=== PATIENT | female | born 1955 ===

== ENCOUNTER 2024-04-04 11:15 | Emergency (ER) | payer OTHER, SELFPAY ==
[2024-04-04 11:17] VITALS: BP 219/115
[2024-04-04 11:41] VITALS: BP 193/108
--- NOTE | 2024-04-04 12:12 | ED.GENMED ---
History of Present Illness
General
Chief Complaint: Fall
Source: patient
Exam Limitations: none
Time Seen by Provider: 04/04/24 12:03
Nursing documentation reviewed up to this point in time: agreed with
History of Present Illness
History of Present Illness:
69-year-old female presenting to the emergency department today with concerns of right hand discomfort ongoing over the past week. Initially had a fall landed on her hand had an x-ray in urgent care told that there was no fracture and that it would
improve over the next few days. Pain is ongoing come back to the ER. Denies numbness weakness or additional concerns
Review of Systems
Review of Systems
Allergies reviewed?: Yes
All Other Systems: ROS reviewed and negative except as documented in HPI and ROS
Phy Exam
Physical Exam
Physical Exam:
GENERAL: Alert , in no apparent distress
EYE: pupils equal and reactive
NECK: Supple, no significant adenopathy.
ENT: o/p clr, mmm.
CARDIAC: Regular rate and rhythm .
LUNGS: Clear breath sounds bilaterally, no acute respiratory distress, no wheezes/rales/rhonchi
ABDOMEN: Soft, without focal tenderness, no r/g, no cvat
NEUROLOGICAL: Alert and oriented, no focal neuro deficits
SKIN: Warm and dry, skin intact.
MUSCULOSKELETAL: Mild pain mainly to the palm of the hand otherwise no significant redness swelling warmth good range of motion of the wrist and fingers no edema, well perfused.
PSYCH: Normal and appropriate interaction.
Course
Orders/Labs/Results
Orders:
Orders
04/04/24 11:20
CR Hand - Right Min 3 Views Urgent
Comment:
Reason For Exam: pain 1 week after fall
Vital Signs
Initial and Last Documented VS:
Initial Vital Signs
Temp Pulse Resp BP Pulse Ox
97.6 F 72 16 219/115 98
04/04/24 11:17 04/04/24 11:17 04/04/24 11:17 04/04/24 11:17 04/04/24 11:17
Last Documented Vital Signs
Temp Pulse Resp BP Pulse Ox
97.6 F 67 18 193/108 99
04/04/24 11:17 04/04/24 11:41 04/04/24 11:41 04/04/24 11:41 04/04/24 11:41
MDM/Problems Addressed
MDM/Problems Addressed:
69-year-old female presenting to the emergency department with ongoing right-sided hand pain after injuring her hand 1 week ago. X-rays normal 1 week ago repeated today without acute abnormalities. Patient with likely ongoing soft tissue
discomfort plan for close outpatient follow-up return precautions given.
*Critical Care Note
Total Time (30-74mins, 75-104mins- exclusive of procedures): Not Applicable
ED Attending Note
-
Portions of this chart may have been created with voice recognition software.� Occasional wrong word or��sound alike� substitutions may have occurred due to the inherent limitations of voice recognition software.
Discharge Plan
Departure
Patient Disposition: Home (Routine Discharge)
Date of Disposition: 04/04/24
Time of Disposition: 12:12
Patient with high blood pressure during this ER visit?: No
Condition: Good
Covid-19: Not Applicable
Discharge Problem:
Hand sprain
Instructions: Finger Sprain Exercises
Referrals:
Ky Niño MD [Active] - Follow up in 1 week
NONE,* [Family Provider] -
Activity Restrictions/Additional Instructions:
You came to the emergency department today with concerns of ongoing hand discomfort. Please engage in some light activity to the hand and follow-up closely with the hand doctor if symptoms or not improving. Otherwise here your x-ray did not show
any fractures. Return to the emergency department for any worsening, new or concerning symptoms.
Interventions
Interventions:
*Risk Screen - Suicide Last Done: 04/04/24 12:21
*General Assessment Last Done: 04/04/24 12:21
*Neglect/Abuse Screening Last Done: 04/04/24 12:21
ED- Fall Risk Assessment Last Done: 04/04/24 12:21
*ED COVID-19 Vaccine History Last Done: 04/04/24 12:21
*Nursing Disposition Last Done: 04/04/24 12:21
ED-Musculoskeletal Assessment Last Done: 04/04/24 11:41
ED- Neurological Assessment Last Done: 04/04/24 11:41
ED-Skin Assessment Last Done: 04/04/24 11:41
Discharge Date and Time
Discharge Date/Time: 04/04/24 12:23
Print Language: SWISS
== END 2024-04-04 12:23 | disposition home or self-care (01) ==
LOC: EMR 11:15
PROVIDERS: EMERGENCY PHYSICIAN Emergency Medicine
DX: S63.91XA Sprain of unspecified part of right wrist and hand, initial encounter (principal); W19.XXXA Unspecified fall, initial encounter
CPT/HCPCS: 99283; 73130